=== PATIENT | male | born 1945 | race Caucasian/White ===

== ENCOUNTER 2025-01-24 14:26 | Outpatient (CLI) | payer MEDICARE, SELFPAY ==
--- NOTE | ~2025-01-24 | CT_ITS ---
CLINICAL INDICATION: Gross hematuria COMPARISON: None. TECHNIQUE: Multiple contiguous axial images of the abdomen and pelvis were performed without the admi nistration of intravenous contrast The dose-length product (DLP) was 1300.92 mGy-cm. Automated exposure control and iterative reconstruction technique were employed. FINDINGS/OBSERVATIONS: Visualized lower thorax: The bilateral lung bases are clear. The heart is enlarged, without pericardial effusion. Small hiatal hernia is present. Liver: Punctate calcifications identified within the hepatic parenchyma, suggesting prior granulomato us disease. Well-circumscribed focus of fluid attenuation within segment 2 and 5 of the liver, statistically repr esenting cysts. The remainder of the liver demonstrates otherwise homogeneous attenuation and is not enlarged. Gallbladder and biliary system: The gallbladder is surgically absent. Pancreas: Limited evaluation of the pancreas secondary to the lack of intravenous contrast. Spleen: Punctate calcifications identified within the splenic parenchyma, suggesting prior granulomat ous disease. The remainder of the spleen demonstrates otherwise no homogeneous attenuation and is not enlarged. Kidneys: 2 mm nonobstructing calculus is identified within the lower pole of the left kidney. The remainder of the bilateral kidneys are unremarkable, without hydronephrosis or obstructing renal calculi. Adrenal glands: Unremarkable. Gastrointestinal tract: Colonic diverticulosis without surrounding inflammatory change. Appendix: The air-filled appendix is of normal caliber (axial series, images 59 through 98) Vasculature: Densely calcified atherosclerotic disease without aneurysmal dilatation. Lymph nodes: Limited evaluation without intravenous contrast Pelvic structures: The bladder is only minimally distended, and otherwise unremarkable. Limited evaluation of the attenuation of the base of the bladder secondary to streak metallic artifac t from the patient's left hip prosthetic. The prostate gland is not enlarged, and contains bulky calcifications. Body wall and musculoskeletal: Small fat-containing right inguinal hernia. Age-appropriate degenerative disease within the lower thoracic and lumbosacral spine. IMPRESSION: Findings suggesting prior granulomatous disease. 2 mm calculus within the lower pole of the left kidney. No hydronephrosis or additional renal calculi. Reviewed, dictated and finalized at location A.
--- OUTSIDE RECORDS SUMMARY | 2025-01-24 14:49 | XMS_ITS | Clinical Summary ---
Author Organization [facility] Address [address] [place] [address] Care Team Providers Care Leather Goods Maker Name Role Phone Rick Bowman MD Primary Care Provider Source Comments [facility],non-owned Affiliates and Associated Physician Practices is amultiple site organization consisting of ambulatory clinics and hospital sitesin [place], [place], [place] and [place]. This disclosure is being madepursuant to the Care Everywhere program and may not contain all information available regarding this patient. 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 Family History Medical History Relation Name Comments Glaucoma Neg Hx Macular Degeneration Neg Hx Social History Tobacco Use Types Packs/Day Years Used Date Smoking Tobacco: Never Alcohol Use Standard Drinks/Week Comments Yes 0.8 (1 standard drink = 0.6 oz p ure alcohol) Sex and Gender Information Value Date Recorded Sex Assigned at Not on file Legal Sex 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 Gender Identity Not on file Sexual Orientation Not on file Last Filed Vital Signs Vital Sign Reading Time Taken Comments Blood Pressure 129/72 08/12/2013 2:08 PM [employer] ASSOCI[employer] PROFESSOR Pulse 61 08/12/2013 2:08 PM [employer] PROFESSOR Temperature 36.4 C (97.6 F) 08/12/2013 2:08 PM [employer] ASS[employer] PROFESSOR Respiratory Rate 16 08/12/2013 2:08 PM [employer] ASSOCIATE PROFESSOR Oxygen Saturation 100% 08/12/2013 2:08 PM [employer] ASS[employer] PROFESSOR Inhaled Oxygen Concentration - - Weight 95.3 kg (210 lb) 08/12/2013 10:55 AM [employer] ASSOCI[employer] PROFESSOR Height 172.7 cm (5' 8) 08/12/2013 10:55 AM [employer] ASSOCIATE PROFESSOR Body Mass Index 31.93 08/12/2013 10:55 AM [employer] PATH[employer] ASSOCIATE PROFESSOR Plan of Treatment Health Maintenance Due Date Last Done Comments DTAP/TDAP/TD VACCINES (1 - Tdap) 1964 PNEUMOCOCCAL VACCINE 50+ (1 of 1 - PCV) 1995 ZOSTER VACCINE (1 of 2) 1995 Respiratory Syncytial Virus (RSV) Vaccine Pt: or over 60 yrs (1 - 1-dose 75+ series) 2020 COVID-19 VACCINE ( - 2023-2 5 season) 2024 DEPRESSION SCREENING 06/16/2024 INFLUENZA VACCINE (#1) 2025 HEPATITIS B VACCINE Aged Out No longe r eligible based on patient's age to complete this topic HIB VACCINE Aged Out No longer eligi ble based on patient's age to complete this topic HPV VACCINE Aged Out No longer eligi ble based on patient's age to complete this topic MENINGOCOCCAL (Group B) VACC INE SHARED DECISION-MAKING Aged Out No longer eligibl e based on patient's age to complete this topic MENINGOCOCCAL GROUPS A/C/Y/W VACCINE Aged Out No longer eligible b ased on patient's age to complete this topic Care Teams Leather Goods Maker Relationship Specialty Start Date End Date Rick Bowman MD [id number] [id number] PCP - General 06/28/13
--- OUTSIDE RECORDS SUMMARY | 2025-01-24 14:49 | XMS_ITS | Clinical Summary ---
Author Organization [facility] Address [address] [place] [address] Care Team Providers Care Multimedia Services Manager Name Role Phone Sloan Montano MD Unavailable [phone] Noah Li MD, Clarence Xie Primary Care Provide r Vidal Pike DO Unavailable [phone] Allergies Active Allergy Reactions Criticality Noted Date Comments Iodinated Contrast Media Hives Medium Penicillins Rash Medium As a child Medications finasteride (PROSCAR) 5 mg tabletIndications: Benign prostatic hyperplasia without lower urinary tract symptoms Take 1 tablet (5 mg total) by mouth daily 90 tablet 3 01/18/20 22 Active Additional Information Patient taking differently:5 mg oralNightly, Indications: benign prostatic hyperplasia with lower urinary tract sx, Informant: Self, Reported on 01/10/2025 multivit-min/folic /vit K/lycop (MEN'S MULTIVITAMIN ORAL)Indications:s upplement Take 1 tablet by mouth nightly Active meloxicam (MOBIC) 15 mg tablet Take 1 tablet (15 mg total) by mouth daily 90 tablet 3 05/21/20 24 025 Active Additional Information Patient taking differently:15 mg oralEvery morning, Indications: Osteoarthritis, Informant: Self, Reported on 01/10/2025 atorvastatin (LIPITOR) 80 mg tabletIndications: Hypercholesterolem ia TAKE 1 TABLET(80 MG) BY MOUTH DAILY 90 tablet 3 06/21/19 25 Active Additional Information Patient taking differently:80 mg oralNightly, Indications: hyperlipidemia, Informant: Self, Reported on 01/10/2025 gabapentin (NEURONTIN) 100 mg capsuleIndications :Spinal stenosis of lumbar region without neurogenic claudication,Myelo beba,Bulging of lumbar intervertebral disc Take 1 capsule (100 mg total) by mouth 3 (three) times a day 270 capsule 11/16/19 25 Active Additional Information Patient taking differently:100 mg oral 3 times daily,Indications: Neuropathic Pain, Informant: Self, Reported on 01/10/2025 naloxone (NARCAN) 4 mg/actuation spray,non-aerosolI ndications:Bulging of lumbar intervertebral disc,Myelopathy Administer 1 spray into affected nostril(s) as needed for opioid reversal Call 911. Administer a single spray in one nostril. Repeat every 3 minutes as needed if no or minimal response. 1 each 12/10/19 25 Active LORazepam (ATIVAN) 1 mg tabletIndications: Essential tremor Take 1 tablet (1 mg total) by mouth 2 (two) times a day 60 tablet 4 12/10/19 25 Active Additional Information Patient taking differently:1 mg oral 2 times daily,Indications: anxiety, Informant: Self, Reported on 01/10/2025 mupirocin (BACTROBAN) 2 % ointment Apply to nares BID starting 5 days prior to surgery ending the day prior 22 g 12/14/19 25 Active acetaminophen (TYLENOL) 500 mg tabletIndications: Pain Take 1 tablet (500 mg total) by mouth every 6 (six) hours as needed for pain Active polyethylene glycol (MIRALAX) 17 gram/dose bulk powderIndications: constipation Take 17 g by mouth daily as needed Active oxyCODONE-acetamin ophen (PERCOCET) 5-325 mg per tabletIndications: Pain Take 1 tablet by mouth every 4 (four) hours as needed for pain 20 tablet 01/11/20 25 Active cyclobenzaprine (FLEXERIL) 10 mg tablet Take 1 tablet (10 mg total) by mouth 3 (three) times a day as needed for muscle spasms 15 tablet 01/11/20 25 Active senna (SENOKOT) 8.6 mg tablet Take 1 tablet by mouth daily 30 tablet 11 01/11/20 25 026 Active ondansetron ODT (ZOFRAN-ODT) 4 mg disintegrating tablet Take 1 tablet (4 mg total) by mouth every 8 (eight) hours as needed for nausea or vomiting 20 tablet 01/11/20 25 Active HYDROcodone-acetam inophen (NORCO) 5-325 mg per tabletIndications: Pain Take 1-2 tablets by mouth every 8 (eight) hours as needed for pain 28 tablet 01/13/20 25 Active ezetimibe (ZETIA) 10 mg tablet Take 1 tablet (10 mg total) by mouth daily 90 tablet 3 01/19/20 25 Active ezetimibe (ZETIA) 10 mg tablet TAKE 1 TABLET(10 MG) BY MOUTH DAILY 90 tablet 3 01/12/20 24 025 Discontin ued(Reord er) HYDROcodone-acetam inophen (NORCO) 5-325 mg per tabletIndications: Pain Take 1-2 tablets by mouth every 8 (eight) hours as needed for pain 60 tablet 12/17/19 25 025 Discontin ued(Reord er) Active Problems Problem Noted Date Diagnosed Date Thoracic myelopathy 12/13/2024 Spinal stenosis of lumbar re gion without neurogenic claudication 05/21/2024 Assessment & Plan (05/21/2024 11:03 AM ASSISTANT HVAC MECHANIC): Ongoing. Continue Meloxicam 15 mg daily. MRI reviewed with Vidal and Tx options discussed. He is encouraged to stay active to prevent pain. He will notify our office of any significant changes, but I have advised that pain will naturally increase and decrease without warning. Preventative health care 02/03/2024 Assessment & Plan (02/03/2024 11:06 AM CDT): Reviewed previous labs and diagnostic test results. Chronic medical problems evaluated and management plans discussed with the patient. Prescription medications, supplements, vitamins and immunizations reviewed. Wear seatbelts. Use sunscreen. Discussed healthy diet and disease prevention and controlling portions including alcohol Discussed importance of scheduling recommended screening tests. Discussed importance of regular physical examinations for health maintenance. Discussed importance of a living will, advanced directives and establishing or updating healthcare power of attorney law clerk document and providing our office with a copy. Memory loss 02/03/2024 Assessment & Plan (10/12/2024 10:31 AM CDT): Believes this has improved recently since going back on ativan twice a day Assessment & Plan (02/03/2024 11:58 AM CDT): Mild at worst, will recheck slums next year Wanted to hold memory clinic, explained that is over in [facility] now moving forward Essential tremor 04/26/2022 Assessment & Plan (02/03/2024 10:35 AM CDT): Attempted to try multiple other medications Patient reports only lorazepam controlling his symptoms Have explained controlled substances nature of this medication, increase fall risk, dementia etc Still wants to take ativan twice a day Assessment & Plan (01/28/2023 11:33 AM CDT): Chronic stable Well controlled Continue current prescribed medications at current dose Assessment & Plan (11/14/2022 2:18 PM CDT): Has tried all the other medications for this but nothing else has helped and if anything has made his movement disorder worse This has become troublesome for him and we have discussed at length We will restart ativan and continue that moving forward Understands Assessment & Plan (08/12/2022 4:40 PM ASSISTANT HVAC MECHANIC): We are stopping propanolol because of lack of results and low HR He is asymptomatic from a low heart rate stand point We will try gabapentin, he can uptritate as needed to 300 mg twice a dosing He will contact us about his progression Assessment & Plan (04/26/2022 4:23 PM ASSISTANT HVAC MECHANIC): Has taken lorazepam for years for this We discussed at length new plan moving forward, we will attempt to get off the lorazepam and change to propanolol We will slowly wean off lorazepam CSA signed He will try 1 ativan a day, then 1 propanolol in the afternoon. We will try this for several months if not the year consider his duration of being on ativan Left ureteral stone 12/09/2019 Assessment & Plan (08/12/2022 4:26 PM ASSISTANT HVAC MECHANIC): Will follow with urology about this Assessment & Plan (01/17/2022 10:02 AM CDT): Treated with lithotripsy Bilateral impacted cerumen 04/06/2019 Assessment & Plan (04/06/2019 10:27 AM CDT): The cerumen was removed form both ear by lavaging with water Light headedness 02/23/2019 Assessment & Plan (02/23/2019 11:53 AM CDT): Told to get up slowly History of left hip replacement 12/04/2017 Class 1 obesity due to exces s calories with serious comorbidity and body mass index (BMI) of 34.0 to 34.9 in adult 12/04/2017 Assessment & Plan (02/03/2024 11:06 AM CDT): Monitor, stable over the years Assessment & Plan (01/28/2023 1:13 PM CDT): Monitor weight Assessment & Plan (08/12/2022 4:27 PM ASSISTANT HVAC MECHANIC): With HLD Monitor weight Assessment & Plan (01/17/2022 10:00 AM CDT): BMI Follow-up includes: education provided. Assessment & Plan (01/08/2021 11:01 AM CDT): BMI Follow-up includes: education provided. Assessment & Plan (01/05/2020 2:32 PM CDT): BMI Follow-up includes: education provided. Assessment & Plan (04/06/2019 10:28 AM CDT): BMI Follow-up includes: education provided. Assessment & Plan (02/23/2019 11:52 AM CDT): BMI Follow-up includes: education provided. Assessment & Plan (12/30/2018 11:10 AM CDT): BMI Follow-up includes: education provided. Vitamin B12 deficiency 12/04/2017 Assessment & Plan (01/31/2022 9:16 AM CDT): Continue the vitamin B12 Medicare annual wellness visit, subsequent 12/16 Assessment & Plan (01/28/2023 1:13 PM CDT): Reviewed previous labs and diagnostic test results. Chronic medical problems evaluated and management plans discussed with the patient. Prescription medications, supplements, vitamins and immunizations reviewed. Wear seatbelts. Use sunscreen. Discussed healthy diet and disease prevention and controlling portions including alcohol Discussed importance of scheduling recommended screening tests. Discussed importance of regular physical examinations for health maintenance. Discussed importance of a living will, advanced directives and establishing or updating healthcare power of attorney law clerk document and providing our office with a copy. Assessment & Plan (01/05/2020 2:31 PM CDT): Examination is normal Assessment & Plan (12/04/2017 10:21 AM CDT): Examination is good Assessment & Plan (12/16/2016 10:11 AM CDT): Told to lose weight Corneal ulcer 03/30/2015 Hypercholesterolemia 10/30/2013 Overview (09/19/2016): Hypercholesterolemia Assessment & Plan (02/03/2024 11:01 AM CDT): Chronic stable Well controlled Continue current prescribed medications ezetimibe and lipitor at current dose Assessment & Plan (01/28/2023 11:33 AM CDT): Chronic stable Well controlled Continue current prescribed medications at current dose Assessment & Plan (04/26/2022 4:04 PM ASSISTANT HVAC MECHANIC): Chronic stable Well controlled Continue current medications at current dose Assessment & Plan (01/08/2021 11:02 AM CDT): Continue present medication Assessment & Plan (12/30/2018 11:08 AM CDT): Continue the atorvastatin 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 Assessment & Plan (10/12/2024 10:30 AM CDT): History of this S/p orchiectomy Now in remission No need for active follow-up Put here for chart purpose only-was not discussed Assessment & Plan (02/03/2024 10:40 AM CDT): History of this S/p orchiectomy Now in remission No need for active follow-up Benign prostatic hyperplasia 10/30/2013 Overview (09/20/2016): BPH (benign prostatic hyperplasia) Assessment & Plan (02/03/2024 11:01 AM CDT): Chronic stable Well controlled Continue current prescribed medications flomax and finasteride at current dose Assessment & Plan (01/17/2022 10:02 AM CDT): He is on proscar Assessment & Plan (01/08/2021 10:58 AM CDT): He is followed byr urology for the bph. He had the left testicle removed and was treated with chemotherapy for the testicular carcinoma 40 years ago. 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 If no better will get xrays of ribs Acute left-sided low back pain 11/17/2017 08/12/2022 Assessment & Plan (11/17/2017 2:44 PM CDT): The pain is probably due to muscle strain. No treatment is needed BMI 35.0-35.9,adult 11/17/2017 04/26/20 Assessment & Plan (08/18/2018 3:44 PM ASSISTANT HVAC MECHANIC): BMI Follow-up includes: education provided. Assessment & Plan (12/04/2017 10:23 AM CDT): BMI Follow-up includes: education provided. Assessment & Plan (11/17/2017 2:45 PM CDT): .BMI Follow-up includes: education provided. Encounters Date Type Department Care Team Description 01/11/2025 Telephone [facility] Neurosurgery [facility] 6th [place] [address] [place] [address] Vidal Pike DO 01/11/2025 Telephone [facility] Neurosurgery [facility] 6th [place] [address] [place] [address] Vidal Pike DO 01/10/2025 10:57 AM CDT Anesthesia Event [facility] Operating Room [address] [place] [address] Jose Martin Collier MD Thomas, Karen D., STEEL TURNER 01/10/2025 10:35 AM CDT - 01/10/2025 3:00 PM CDT Surgery [facility] Operating Room [address] [place] [address] Vidal Pike DO THORACIC ENDOSCOPIC DISCECTOMY Right T12-L1 transforaminal discectomy 01/10/2025 6:42 AM CDT - 01/10/2025 6:18 PM CDT Hospital Encounter [facility] Operating Room [address] [place] [address] Vidal Pike DO Thoracic myelopathy (Primary Dx) Discharge Disposition: Discharge to home or self care 12/31/2024 4:16 PM CDT - 12/31/2024 11:59 PM CDT Hospital Encounter [facility] [address] [place] [address] Spinal stenosis of lumbar region without neurogenic claudication; Myelopathy (HCC); Bulging of lumbar intervertebral disc Discharge Disposition: Discharge to home or self care 12/31/2024 2:30 PM CDT Pre-Admission Testing [facility] for Preoperative Assessment and Planning [facility] ([facility]) [address] [place] [id number] Preoperative testing (Primary Dx); Thoracic myelopathy 12/16/2024 Telephone [facility] [address] [place] [address] [address] [place] [address] Clarence Zamora Jr., MD 12/15/2024 Telephone [facility] [address] [place] [address] [address] [place] [address] Clarence Zamora Jr., MD Forms Request 12/13/2024 Orders Only [facility] Neurosurgery [address] [place] [address] 6th [place] [address] [place] [address] Vidal Pike DO 12/13/2024 Nurse Triage [facility] [address] [place] [address] [address] [place] [address] Clarence Zamora Jr., MD 12/10/2024 Orders Only [facility] Neurosurgery [address] [facility] Office Building [address] [place] [address] Vidal Pike DO Myelopathy (HCC) (Primary Dx); Spinal stenosis of lumbar region without neurogenic claudication 12/10/2024 Telephone [facility] Neurosurgery [address] [facility] Office Building [address] [place] [address] Vidal Pike DO 12/10/2024 Nurse Triage [facility] Patient Access [address] [facility] [address] [place] [address] Sangeetha Quevedo RN 12/10/2024 Nurse Triage [facility] Patient Access [address] [facility] [address] [place] [address] Sangeetha Quevedo RN 12/09/2024 10:00 AM CDT Office Visit [facility] [address] [place] [phone] Clarence Zamora Jr., MD Bulging of lumbar intervertebral disc (Primary Dx); Myelopathy (HCC); Essential tremor 12/08/2024 Orders Only [facility] Neurosurgery [address] [place] [address] Office [facility] [address] [place] [address] Vidal Pike DO Bulging of lumbar intervertebral disc (Primary Dx); Spinal stenosis of lumbar region without neurogenic claudication; Myelopathy (HCC) 12/07/2024 10:00 AM CDT Office Visit [facility] Neurosurgery [address] [place] [address] Office [facility] [address] [place] [address] Vidal Pike DO Spinal stenosis of lumbar region without neurogenic claudication; Myelopathy (HCC); Bulging of lumbar intervertebral disc 12/07/2024 Telephone [facility] Care [address] [place] [phone] Clarence Zamora Jr., MD upcoming back surgery 12/01/2024 Orders Only [facility] Neurosurgery Clinic [address] [place] [address], [address] [place] [address] Hugo Harris MD Spinal stenosis of lumbar region without neurogenic claudication (Primary Dx); Myelopathy (HCC); Bulging of lumbar intervertebral disc 11/29/2024 Telephone [facility] [address] [place] [phone] Clarence Zamora Jr., MD X-ray 11/25/2024 12:51 PM CDT - 11/25/2024 11:59 PM CDT Hospital Encounter [facility] [address] [place] [address] Fall, initial encounter Discharge Disposition: Discharge to home or self care 11/25/2024 12:35 PM CDT - 11/25/2024 11:59 PM CDT Hospital Encounter [facility] [address] [place] [address] Spinal stenosis of lumbar region without neurogenic claudication; Myelopathy (HCC); Bulging of lumbar intervertebral disc Discharge Disposition: Discharge to home or self care 11/25/2024 12:34 PM CDT - 11/25/2024 11:59 PM CDT Hospital Encounter [facility] [address] [place] [address] Spinal stenosis of lumbar region without neurogenic claudication; Myelopathy (HCC); Bulging of lumbar intervertebral disc Discharge Disposition: Discharge to home or self care 11/24/2024 Telephone [facility] [address] [place] [address] [address] [place] [address] Clarence Zamora Jr., MD Request for Xray 11/22/2024 Telephone [facility] Scheduling [address] [place], [place] [phone] Racquel Timmons 11/17/2024 11:00 AM CDT Office Visit [facility] [address] [place] [address] 3, [address] [place] [address] Hugo Harris MD Spinal stenosis of lumbar region without neurogenic claudication (Primary Dx); Myelopathy (HCC); Bulging of lumbar intervertebral disc 11/15/2024 Orders Only [facility] Neurosurgery Clinic [address] [place] [address] 3, [address] [place] [phone] Hugo Harris MD Spinal stenosis of lumbar region without neurogenic claudication (Primary Dx); Myelopathy (HCC); Bulging of lumbar intervertebral disc 11/05/2024 - 11/05/2024 11:59 PM CDT Hospital Encounter [facility] [employer] [address] [place] [address] Discharge Disposition: Discharge to home or self care 11/01/2024 2:24 PM CDT - 11/01/2024 11:59 PM CDT Hospital Encounter [facility] [address] [place] [address] Bulging of lumbar intervertebral disc; Myelopathy (HCC) Discharge Disposition: Discharge to home or self care 11/01/2024 2:00 PM CDT Office Visit [facility] [place] [address], [address] [place] [address] Anastacio Gifford PA Spinal stenosis of lumbar region with neurogenic claudication (Primary Dx); Bulging of lumbar intervertebral disc; Myelopathy (HCC) from Last 3 Months Immunizations Immunization Administration Dates Next Due Influenza, Quad, Adjuvantate d, Intramuscular 03/03/2020 Influenza, Quadrivalent, Hig h Dose, Preservative Free, Intrr 03/23/2023,02/24/2022,03/21/2021 Influenza, Trivalent, Adjuva nted, Intramuscular 02/15/2024 Influenza, Trivalent, High D ose, Split, Preservative Free, Intramuscular 04/06/2019,03/09/2018,03/26/2017,03/28,03/13/2015 Influenza, Trivalent, IM (MDV) 4,02/12/2013,05/15/2012,03/16 Influenza, Trivalent, Preser vative Free, Intramuscular 03/03/2020,02/12/2013,05/15/2012 Influenza, Unspecified 03/03/2020,03/16/2016 Pfizer SARS-CoV-2 Monovalent Vaccination (12+ Yrs) PURPLE 08/27/2020,08/06/2020 Pneumococcal Conjugate PCV 13 12/23/2014 Pneumococcal Polysaccharide PPV23 04/12/2019,06/2001 Tdap 09/09/2021,12/23/2014,05/07/2014 ZOSTER Recombinant 11/10/2020,05/10/2020 Surgical History Surgery Date Site/Laterality Comments CHOLECYSTECTOMY Cholecystectomy CATARACT EXTRACTION Right TOTAL HIP ARTHROPLASTY Left ORCHIECTOMY Medical History Medical History Date Comments Osteoarthritis Osteoarthritis Hyperlipidemia Cataract Chronic lumbar pain Lumbar facet arthropathy Dextroscoliosis of lumbar spine DDD (degenerative disc disease), lumbar Difficult intravenous access Testicular cancer (HCC) Kidney stones Family History Medical History Relation Name Comments Coronary artery disease Father Lencho Sainz Cor onary artery disease, premature; Heart attack Father Lencho Sainz Alzheimer's disease Mother Ralfanna Ghislaine Relation Name Status Comments Father Lencho Sainz Alive Mother Evan Ghislaine Alive Social History Tobacco Use Types Packs/Day Years Used Date Smoking Tobacco: Never Passive Smoke Exposure: Never Smokeless Tobacco: Never Tobacco Cessation:Counseling Given: Not Answered Alcohol Use Standard Drinks/Week Comments Yes 0 (1 standard drink = 0.6 oz pur e alcohol) AUDIT-C Answer Date Recorded Q1: How often do you have a drink containing alc ohol? Monthly or less 12/31/2024 Q2: How many drinks containi ng alcohol do you have on a typical day when you are drinking? 1 or 2 12/31/2024 Q3: How often do you have si x or more drinks on one occasion? Never 12/31/2024 PHQ-2 Answer Date Recorded PHQ-2 Total Score (If total score is 3 or more points, staff should administer the PHQ-9) 0 12/09/2024 Personal Safety Answer Date Recorded Have you ever been in or are you currently in a harmful physical or emotional relationship or is someone making you feel afraid or unsafe? Denies 01/10/2025 Sex and Gender Information Value Date Recorded Sex Assigned at Not on file Legal Sex Male 11:42 PM ASSISTANT HVAC MECHANIC Gender Identity Not on file Sexual Orientation Not on file Obstetrics History Last Filed Vital Signs Vital Sign Reading Time Taken Comments Blood Pressure 155/90 01/10/2025 5:40 PM CDT Pulse 74 01/10/2025 5:40 PM CDT Temperature 37 C (98.6 F) 01/10/2025 5:00 PM CDT Respiratory Rate 18 01/10/2025 5:40 PM CDT Oxygen Saturation 93% 01/10/2025 5:40 PM CDT Inhaled Oxygen Concentration - - Weight 101.2 kg (223 lb) 01/10/2025 9:13 AM CDT Height 172.7 cm (5' 8) 12/31/2024 2:35 PM CDT Body Mass Index 33.91 12/31/2024 2:35 PM CDT Plan of Treatment Health Maintenance Due Date Last Done Comments Hepatitis C Screening 1945 Hepatitis B Screening 1963 Covid-19 Vaccine (2023-07 5 season) 2024 02/15/2024, 03/23/2023, 02/24/2022, Additional history exists Well Visit 65+ 02/02/2025 02/03/2024, 01/14, 01/17/2022, Additional history exists Influenza Vaccine (#1) 2025 , 03/23/2023, 02/24/2022, Additional history exists Depression Screening 12/09/2025 12/09/2024, 10/12/2024, 05/21/2024, Additional history exists Fall Risk Assessment 01/10/2026 01/10/2025, 02/03/2024, 01/28/2023, Additional history exists DTaP/Tdap/Td Vaccine (4 - Td or Tdap) 09/10/2031 09/09/2021, 12/23/2014, 05/07/2014 Colon Cancer Screening-CT Colonography Discontinued 04/19/2016, 04/18/2016 Colon Cancer Screening-Colonoscopy Discontinued 04/19/2016, 04/18/2016 Colon Cancer Screening-DNA Stool Discontinued 04/19/20 16, 04/18/2016 Colon Cancer Screening-FIT Discontinued 04/19/2016, Colon Cancer Screening-FOBT Discontinued 04/19/2016, 1 06/18/2015 Colon Cancer Screening-Sigmoidoscopy Discontinued 04/19/2016, 04/18/2016 Colorectal Cancer Screening Discontinued Pneumococcal vaccine 65+ Completed 019, 12/23/2014, 06/16/2001 Zoster Vaccine Completed 11/10/2020, 05/10/2020 Medical Devices Implanted Type Area Professional Nurse Device Identifier Shelf Expiration Date Model / Serial / Lot [employer] Graft Biological Cranial Dural Rectangle Duragen Plus 1x3in Bovine Collagen Matrix [id number] - [id number] Implanted:Qty: 1 on 01/10/2025 by Vidal Pike DO at [facility] Right: Epidural Space [employer] [id number] 05/15/2027 [id number] / / [id number] Procedures Procedure Name Priority Date/Time Associated Diagnosis Comments FL FLUOROSCOPY < 1 HOUR IP Routine 01/10/2025 5:02 PM CDT POC BLOOD GAS AND CHEMISTRIES, ARTERIAL Routine 01/10/2025 2:20 PM CDT PERIPHERAL LINE Routine 01/10/2025 12:46 PM CDT ANESTHESIA ARTERIAL LINE PLACEMENT Routine 01/10/2025 12:46 PM CDT ANESTHESIA INTUBATION Routine 01/10/2025 12:45 PM CDT SPINAL CORD MONITORING 01/10/2025 11:00 AM CDT Thoracic myelopathy THORACIC ENDOSCOPIC DISCECTOMY 01/10/2025 11:00 AM CDT Thoracic myelopathy B CHECK SAMPLE STAT 01/10/2025 9:25 AM CDT MRI SPINE CERVICAL THORACIC WO CONTRAST Schedule Routine, Read Routine (OP Routine) 12/31/2024 6:08 PM CDT Spinal stenosis of lumbar region without neurogenic claudication Myelopathy (HCC) Bulging of lumbar intervertebral disc EGFR Routine 12/31/2024 3:54 PM CDT Thoracic myelopathy DIFFERENTIAL AUTO Routine 12/31/2024 3:5 4 PM CDT Thoracic myelopathy CPAP APTT ALGORITHM Routine 12/31/2024 3 :54 PM CDT Preoperative testing TYPE AND SCREEN 14 DAY Routine 12/31/2024 3:54 PM CDT Preoperative testing PROTIME-INR Routine 12/31/2024 3:54 PM CDT Thoracic myelopathy CBC WITH AUTO DIFFERENTIAL Routine 12/31/2024 3:54 PM CDT Thoracic myelopathy BASIC METABOLIC PANEL Routine 12/31/2024 3:54 PM CDT Thoracic myelopathy URINALYSIS AND REFLEX TO MICROSCOPIC AND CULTURE Routine 12/31/2024 3:54 PM CDT Thoracic myelopathy XR HIP LEFT 2 OR 3 VIEWS Schedule Routine, Read Routine (OP Routine) 11/25/2024 1:05 PM CDT Fall, initial encounter CT THORACIC SPINE WO CONTRAST Schedule Routine, Read Routine (OP Routine) 11/25/2024 12:47 PM CDT Spinal stenosis of lumbar region without neurogenic claudication Myelopathy (HCC) Bulging of lumbar intervertebral disc CT LUMBAR SPINE WO CONTRAST Schedule Routine, Read Routine (OP Routine) 11/25/2024 12:46 PM CDT Spinal stenosis of lumbar region without neurogenic claudication Myelopathy (HCC) Bulging of lumbar intervertebral disc MSK MR OUTSIDE REFERENCE Routine 11/05/2024 12:00 AM CDT XR LUMBAR SPINE AP LAT FLEX EX Schedule Routine, Read Routine (OP Routine) 11/01/2024 2:38 PM CDT Bulging of lumbar intervertebral disc Myelopathy (HCC) XR SCOLIOSIS AP LAT Schedule Routine, Read Routine (OP Routine) 11/01/2024 2:38 PM CDT Bulging of lumbar intervertebral disc Myelopathy (HCC) COLONOSCOPY REPORT 04/19/2016 from Last 3 Months or Most Recently Relevant to Health Maintenance Results * FL Fluoroscopy < 1 Hour (01/10/2025 5:02 PM CDT) Narrative [facility] - 01/10/2025 5:02 PM CDT The images from this study are not interpreted by Radiology. Please refer to the physician's procedure / OR operative note. Vidal Pike DO IMG FLUOROSCOPY PROCEDURES Rachel l Result [facility] * (ABNORMAL) POC Blood Gas and Chemistries, Arterial - (01/10/2025 2:20 PM CDT) pH, Art POC 7.36 7.35 - 7.45 pCO2, Art POC 44 35 - 45 mmHg [facility] pO2, Art POC 104 83 - 108 mmHg [facility] Na, POC 138 135 - 145 mmol/L [facility] K POC 4.0 3.3 - 4.9 mmol/L [facility] Comment: Interpretive Data Not all point of care methods assess for hemolysis. Confirm with instrument and retest K+ if not consistent with clinical signs and symptoms. Current Interpretive Data was last revised on 2023. Cl, POC 107 97 - 110 mmol/L [facility] Ionized Ca, POC 4.76 4.50 - 5.10 mg/dL [facility] Glucose, POC 127 70 - 199 mg/dL [facility] Lactate POC 1.9 0.7 - 2.0 mmol/L [facility] SO2 (bennie) arterial 100(H) 90 - 95 % [facility] Base excess, POC -0.8 mmol/L [facility] Hct, POC 40.0(L) 41.4 - 51.6 % [facility] Total Hb, POC 13.2(L) 13.8 - 17.2 g/dL [facility] Blood 01/10/2025 2:20 PM CDT 01/10/2025 2:20 PM CDT Vidal Pike DO LAB POCT ORDERABLES - DEVICE Fi nal Result [facility] [place] [address] * Peripheral IV Catheter (01/10/2025 12:46 PM CDT) Narrative Itz Hubbard MD - 01/10/2025 12:46 PM CDT Itz Hubbard MD 01/10/2025 12:47 PM Peripheral IV Catheter Patient location: OR Staff: Supervising provider: Jose Martin Collier MD Placed by: Resident: Itz Hubbard MD Preprocedure prep: Prep solution: alcohol PPE: gloves and provider hat/mask PIV line: Laterality: left Site: antecubital Catheter size: 18 g Technique: direct visualization Procedure details: good blood return and occlusive dressing applied Number of attempts: 1 Assessment: Events: patient tolerated procedure well with no complications Jose Martin Collier MD ANESTHESIA ORDERABLES Fi nal Result * Arterial Line (01/10/2025 12:46 PM CDT) Itz Ewing MD - 01/10/2025 12:46 PM CDT Itz Hubbard MD 01/10/2025 12:46 PM Arterial Line Patient location: OR Indication: continuous blood pressure monitoring Ultrasound assisted: yes Staff: Placed by: Resident: Itz Hubbard MD Procedure prep: Prep solution: chlorhexadine/alcohol Prep: provider hat/mask and sterile gloves Arterial line: Catheter size: 20 gauge Catheter length: 1 and 3/4 inch Catheter type: wire-guided catheter Seldinger technique: yes Laterality: right Site: radial artery Line secured: Tegaderm Results: good waveform and good blood return Number of attempts: 1 Assessment: Events: patient tolerated procedure well with no complications Jose Martin Collier MD ANESTHESIA ORDERABLES Fi nal Result * Airway (01/10/2025 12:45 PM CDT) Itz Ewing MD - 01/10/2025 12:45 PM CDT Itz Hubbard MD 01/10/2025 12:46 PM Airway Patient location: OR Urgency: elective Indications for airway management: anesthesia Difficult airway: no Staff: Supervising provider: Jose Martin Collier MD Placed by: Resident: Itz Hubbard MD Emergent airway documentation: Risks and benefits discussed: yes Consent obtained: yes Consent given by: patient Airway prep: Preoxygenated: yes Patient position: sniffing Spontaneous ventilation during airway: absent Sedation level during airway: GA Final airway details: Final airway type: endotracheal airway Tube type: ETT ETT size: 8.0 mm Cuffed: yes Technique used for successful ETT placement: video laryngoscopy Devices/Methods used in placement: intubating stylet Insertion site: oral Blade type: Prashant Video blade type: Germain Blade size: 4D Cormack-Lehane (video): grade I - full view of glottis Cuff volume: 9 mL Cuff inflated with: air ETT to lips: 25 cm Placement verified by: auscultation and CO2 detection Airway secured with: prone view tape and tegaderm Number of attempts: 1 Jose Martin Collier MD ANESTHESIA ORDERABLES Fi nal Result * Check Sample (01/10/2025 9:25 AM CDT) ABO Rh B Positive [facility] OTHER 01/10/2025 9:25 AM CDT 01/10/2025 10:02 AM CDT Vidal Pike DO LAB BLOOD ORDERABLES Final Resu lt [facility] [place] [address] [facility] * MRI Spine Cervical and Thoracic WO Contrast (12/31/2024 6:08 PM CDT) Anatomical Region Laterality Modality Spine N/A Magnetic Resonan ce 01/01/2025 12:5 4 PM CDT Impressions 01/01/2025 12:54 PM CDT 1. Moderate degenerative changes of the cervical spine. 2. Mild degenerative changes of the thoracic spine. Electronically signed by: David Perez M.D. Narrative 01/01/2025 12:54 PM CDT EXAMINATION: 1. Magnetic resonance imaging (MRI) of the cervical spine without contrast 2. Magnetic resonance imaging (MRI) of the thoracic spine without contrast HISTORY: Spinal stenosis presurgical planning TECHNIQUE: Multiplanar multi-weighted MRI of the cervical spine was performed without intravenous contrast using the standard protocol. Multiplanar multi-weighted MRI of the thoracic spine was performed without intravenous contrast using the standard protocol. COMPARISON: Comparisons are available at the lumbar spine only. FINDINGS: CERVICAL SPINE: The alignment of the cervical spine is normal. Vertebral bodies demonstrate Modic changes at multiple levels. No acute fracture is identified. The craniocervical junction is normal. The visualized portions of the skull base and the posterior fossa are normal. The spinal cord demonstrates normal signal intensity on all sequences. Severe degenerative disc disease is seen throughout the cervical spine with partial fusion at C6-C7. There are no annular fissures identified. No soft tissue abnormality is identified. C2-C3: The disk is normal in configuration. There is mild facet arthropathy. There is no uncovertebral joint disease. There is no neuroforaminal stenosis. There is no spinal canal stenosis. C3-C4: Mild disc osteophyte complex. There is mild facet arthropathy. There is mild uncovertebral joint disease. There is moderate to severe neuroforaminal stenosis. There is mild spinal canal stenosis. C4-C5: Mild disc osteophyte complex. There is mild facet arthropathy. There is mild uncovertebral joint disease. There is moderate right mild left neuroforaminal stenosis. There is mild spinal canal stenosis. C5-C6: Mild disc osteophyte complex. There is mild facet arthropathy. There is moderate uncovertebral joint disease. There is moderate neuroforaminal stenosis. There is mild spinal canal stenosis. C6-C7: Mild bulging. There is mild facet arthropathy. There is no uncovertebral joint disease. There is no neuroforaminal stenosis. There is no spinal canal stenosis. C7-T1: Mild disc osteophyte complex. There is moderate facet arthropathy. There is mild uncovertebral joint disease. There is no neuroforaminal stenosis. There is no spinal canal stenosis. THORACIC SPINE: There is mild scoliosis. Vertebral bodies demonstrate normal signal intensity on all sequences except for the level of T12-L1 which demonstrates extensive Modic changes.. There are no compression fractures. The spinal cord demonstrates normal signal intensity on all sequences. Degenerative disc disease is seen throughout the thoracic spine. Limited views of the chest and abdomen show no soft tissue abnormality. There is no significant canal stenosis throughout the thoracic spine. Procedure Note David Perez MD PhD - 01/01/2025 EXAMINATION: 1. Magnetic resonance imaging (MRI) of the cervical spine without contrast 2. Magnetic resonance imaging (MRI) of the thoracic spine without contrast HISTORY: Spinal stenosis presurgical planning TECHNIQUE: Multiplanar multi-weighted MRI of the cervical spine was performed without intravenous contrast using the standard protocol. Multiplanar multi-weighted MRI of the thoracic spine was performed without intravenous contrast using the standard protocol. COMPARISON: Comparisons are available at the lumbar spine only. FINDINGS: CERVICAL SPINE: The alignment of the cervical spine is normal. Vertebral bodies demonstrate Modic changes at multiple levels. No acute fracture is identified. The craniocervical junction is normal. The visualized portions of the skull base and the posterior fossa are normal. The spinal cord demonstrates normal signal intensity on all sequences. Severe degenerative disc disease is seen throughout the cervical spine with partial fusion at C6-C7. There are no annular fissures identified. No soft tissue abnormality is identified. C2-C3: The disk is normal in configuration. There is mild facet arthropathy. There is no uncovertebral joint disease. There is no neuroforaminal stenosis. There is no spinal canal stenosis. C3-C4: Mild disc osteophyte complex. There is mild facet arthropathy. There is mild uncovertebral joint disease. There is moderate to severe neuroforaminal stenosis. There is mild spinal canal stenosis. C4-C5: Mild disc osteophyte complex. There is mild facet arthropathy. There is mild uncovertebral joint disease. There is moderate right mild left neuroforaminal stenosis. There is mild spinal canal stenosis. C5-C6: Mild disc osteophyte complex. There is mild facet arthropathy. There is moderate uncovertebral joint disease. There is moderate neuroforaminal stenosis. There is mild spinal canal stenosis. C6-C7: Mild bulging. There is mild facet arthropathy. There is no uncovertebral joint disease. There is no neuroforaminal stenosis. There is no spinal canal stenosis. C7-T1: Mild disc osteophyte complex. There is moderate facet arthropathy. There is mild uncovertebral joint disease. There is no neuroforaminal stenosis. There is no spinal canal stenosis. THORACIC SPINE: There is mild scoliosis. Vertebral bodies demonstrate normal signal intensity on all sequences except for the level of T12-L1 which demonstrates extensive Modic changes.. There are no compression fractures. The spinal cord demonstrates normal signal intensity on all sequences. Degenerative disc disease is seen throughout the thoracic spine. Limited views of the chest and abdomen show no soft tissue abnormality. There is no significant canal stenosis throughout the thoracic spine. IMPRESSION: 1. Moderate degenerative changes of the cervical spine. 2. Mild degenerative changes of the thoracic spine. Electronically signed by: David Perez M.D. Vidal Pike DO [facility] MRI PROCEDURES Final Result * TYPE AND SCREEN 14 DAY (12/31/2024 3:54 PM CDT) ABO Rh B Positive Kelley, indirect Negative [facility] Blood 12/31/2024 3:54 PM CDT 12/31/2024 4:29 PM CDT Narrative [facility] - 12/31/2024 5:21 PM CDT Is this test being ordered in advance for a procedure?->Yes Expected date of procedure:->01/10/25 Has the patient been transfused in the past 3 months?->No Alicia Johnson [employer] LAB BLOOD BANK TEST ORDERABLE S Final Result Performing Organization Address [facility] de Phone Number [facility] [place] [address] * eGFR (12/31/2024 3:54 PM CDT) eGFR 89 >=60 mL/min/1. 73 m2 Comment: Interpretive Data Reference Interval Normal >/= 90 mL/min/1.73m2 Mildly decreased* 60 - 89 mL/min/1.73m2 Mildly to moderately decreased 45 - 59 mL/min/1.73m2 Moderately to severely decreased 30 - 44 mL/min/1.73m2 Severely decreased 15 - 29 mL/min/1.73m2 Kidney Failure < 15 mL/min/1.73m2 *Relative to young adult level Estimated glomerular filtration rate is determined by the 2020 CKD-EPI equation recommended by the National Kidney [employer] (A Unifying Approach to GFR Estimation: Recommendations of the NKF-ASK Task Force on Reassessing the Inclusion of Race in Diagnosing Kidney Disease, JASN 202). The CKD-EPI equation should not be used for patients with unstable renal function and has not been validated in children and those over 70. Current interpretive data was last reviewed 2021. Blood 12/31/2024 3:54 PM CDT 12/31/2024 4:27 PM CDT us Vidal Pike DO LAB BLOOD ORDERABLES Final Resu lt Performing Organization Address [facility] Co de Phone Number [facility] [place] [address] * Differential, auto (12/31/2024 3:54 PM CDT) Neutrophil abs 5.81 1.50 - 6.50 K/cumm Imm gran abs 0.03 0.00 - 0.10 K/cumm [facility] Lymphocyte abs 2.06 0.80 - 3.30 K/cumm [facility] Monocyte abs 0.63 0.20 - 0.80 K/cumm [facility] Eosinophil abs 0.15 0.00 - 0.50 K/cumm [facility] Basophil abs 0.05 0.00 - 0.10 K/cumm [facility] Neutrophil pct 66.6 % [facility] Comment: Interpretive Data Percent cell count reference ranges are not reported, since discordance with absolute values may lead to misinterpretation of CBC data. Current Interpretive Data was last revised on 2017. Imm gran pct 0.3 % [facility] Comment: Interpretive Data Percent cell count reference ranges are not reported, since discordance with absolute values may lead to misinterpretation of CBC data. Current Interpretive Data was last revised on 2017. Lymphocyte pct 23.6 % [facility] Comment: Interpretive Data Percent cell count reference ranges are not reported, since discordance with absolute values may lead to misinterpretation of CBC data. Current Interpretive Data was last revised on 2017. Monocyte pct 7.2 % [facility] Comment: Interpretive Data Percent cell count reference ranges are not reported, since discordance with absolute values may lead to misinterpretation of CBC data. Current Interpretive Data was last revised on 2017. Eosinophil pct 1.7 % [facility] Comment: Interpretive Data Percent cell count reference ranges are not reported, since discordance with absolute values may lead to misinterpretation of CBC data. Current Interpretive Data was last revised on 2017. Basophil pct 0.6 % [facility] Comment: Interpretive Data Percent cell count reference ranges are not reported, since discordance with absolute values may lead to misinterpretation of CBC data. Current Interpretive Data was last revised on 2017. Blood 12/31/2024 3:54 PM CDT 12/31/2024 4:27 PM CDT Vidal Pike DO LAB BLOOD ORDERABLES Final Resu lt Performing Organization Address [facility] Co de Phone Number [place] [address] * CPAP aPTT algorithm (12/31/2024 3:54 PM CDT) aPTT 30 28 - 38 sec Comment: Interpretive Data Heparin therapeutic range: 66.0 - 100.0 seconds. Range based on correlation with therapeutic heparin activity range of 0.3 - 0.7 Units/mL. Current interpretive data was last revised on 2023. Blood 12/31/2024 3:54 PM CDT 12/31/2024 4:26 PM CDT Alicia Johnson NP LAB BLOOD ORDERABLES Final Re sult Performing Organization Address [facility] Co de Phone Number [facility] One [facility] [place] [address] * Urinalysis reflex to microscopic and culture Urine, clean voided (12/31/2024 3:54 PM CDT) Color, ur Yellow Yellow Clarity, ur Clear Clear [facility] Specific gravity, ur 1.021 1.003 - 1.030 [facility] pH, urine 7.0 [facility] Comment: Interpretive Data U rine pH is affected by diet, medications, systemic acid-base disturbances, and renal tubular function. pH may affect urinary stone formation. For example, urine pH below 6.0 may help reduce the tendency for calcium phosphate stones and pH greater than 6.0 may reduce the tendency for uric acid stone formation. Source: [facility] Current Interpretive Data was last revised on 2017 Protein, ur ql Trace Negative [facility] Glucose, ur ql Negative Negative [facility] Ketones, ur Negative Negative [facility] Bilirubin, ur Negative Negative [facility] Blood, ur Negative Negative [facility] Urobilinogen, ur <2.0 <2.0 mg/dL [facility] Nitrite, ur Negative Negative [facility] Leukocyte esterase, ur Negative Negative [facility] UA reflex comment Reflex conditions for microscopic UA and culture not met. [facility] Urine, clean voided 12/31/2024 3:54 PM CDT 12/31/2024 4:23 PM CDT Vidal Pike DO LAB MICROBIOLOGY - GENERAL ORDE RABLES Final Result Performing Organization Address City/[facility]/ZIP Co de Phone Number [facility] [place] [address] * CBC with auto differential (12/31/2024 3:54 PM CDT) Pathologist [facility] WBC 8.73 3.80 - 9.90 K/cumm Hgb 15.7 13.0 - 17.5 g/dL [facility] Hct 46.0 38.9 - 50.3 % [facility] Plt 158 150 - 400 K/cumm [facility] MPV 11.8 9.1 - 12.3 fL [facility] RBC 4.86 4.30 - 5.80 M/cumm [facility] MCV 94.7 81.3 - 96.4 fL [facility] MCH 32.3 27.1 - 33.3 pg [facility] MCHC 34.1 32.3 - 35.7 g/dL [facility] RDW CV 13.6 11.1 - 14.9 % [facility] RDW SD 47.5 35.7 - 48.1 fL [facility] NRBC abs 0.00 0.00 - 0.01 K/cumm [facility] Blood 12/31/2024 3:54 PM CDT 12/31/2024 4:27 PM CDT Vidal Pike DO LAB BLOOD ORDERABLES Final Resu lt [facility] [place] [address] * Protime-INR (12/31/2024 3:54 PM CDT) Pathologist [facility] PT 12.1 9.7 - 13.0 sec INR 1.12 0.90 - 1.20 [facility] Comment: Interpretive data Oral anticoagulant therapeutic ranges: Venous thromboembolism prophylaxis or treatment: 2.0-3.0 CARDIOLOGY Standard range: 2.0-3.0 High-intensity range: 2.5-3.5 Refer to indication-specific guidelines for appropriate target ranges for prosthetic heart valve replacement. Current interpretive data was last revised on 2019. Blood 12/31/2024 3:54 PM CDT 12/31/2024 4:26 PM CDT us Vidal Pike DO LAB BLOOD ORDERABLES Final Resu lt [facility] [place] [address] * Basic metabolic panel (12/31/2024 3:54 PM CDT) [facility] Sodium 142 135 - 145 mmol/L Potassium, pl 4.6 3.3 - 4.9 mmol/L [facility] Chloride 106 97 - 110 mmol/L [facility] CO2 27 22 - 32 mmol/L [facility] Anion gap 9 2 - 15 mmol/L [facility] BUN 12 6 - 25 mg/dL [facility] Creatinine 0.82 0.80 - 1.30 mg/dL [facility] Glucose 98 70 - 199 mg/dL [facility] Comment: Interpretive Data Fasting glucose >/= 126 mg/dl is diagnostic for diabetes. Fasting is defined as no caloric intake for at least 8 hours. Fasting glucose between 100 mg/dl to 125 mg/dl is diagnostic of prediabetes. In a patient with classic symptoms of hyperglycemia or hyperglycemic crisis, a random glucose >/= 200 mg/dl is diagnostic for diabetes. In the absence of unequivocal hyperglycemia, results should be confirmed by repeat testing. The classification and Diagnosis of Diabetes Diabetes Care 202; 46: S19-S40. Current interpretive data was last revised 2022. Calcium 9.2 8.5 - 10.3 mg/dL [facility] Blood 12/31/2024 3:54 PM CDT 12/31/2024 4:27 PM CDT Vidal Pike DO LAB BLOOD ORDERABLES Final Resu lt [facility] [place] [address] * XR Hip Left 2+ Vw (11/25/2024 1:05 PM CDT) Anatomical Region Laterality Modality Lower Extremities, Hip, Pelvis Left C omputed Radiography 11/28/2024 6:46 PM CDT Narrative 11/28/2024 6:49 PM CDT EXAM DESCRIPTION: XR HIP LEFT 2 OR 3 VIEWS REASON FOR STUDY: accidental fall Pt sts fall onto posterior left hip 4 days ago. 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 Pt ambulatory w/ walker assistance. TECHNIQUE: There are 2 radiographic view(s) of the left hip . COMPARISON: Prior films 11/01/2024 FINDINGS: Patient demonstrates left hip arthroplasty with no acute fracture of the osseous or prosthetic components. 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 No change from the prior x-rays. Soft tissues are unremarkable. IMPRESSION: 1. Left hip arthroplasty with no acute fracture. 2. 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 No change from the prior x-rays. THIS IS AN ELECTRONICALLY VERIFIED FINAL REPORT 11/28/2024 6:49 PM - Electronically signed by Clarence Hendrix M.D. MJ T: Report ID: [id number] Reading Location: [id number] Procedure Note Clarence Hendrix MD - 11/28/2024 EXAM DESCRIPTION: XR HIP LEFT 2 OR 3 VIEWS REASON FOR STUDY: accidental fall Pt sts fall onto posterior left hip 4 days ago. Hx of left hip [id number] years ago. Pt ambulatory w/ walker assistance. TECHNIQUE: There are 2 radiographic view(s) of the left hip . COMPARISON: Prior films 11/01/2024 FINDINGS: Patient demonstrates left hip arthroplasty with no acutefracture of the osseous or prosthetic components. Relative protrusio of theacetabular cup with no evidence of fracture. No change from the prior x-rays. Soft tissues are unremarkable. IMPRESSION: 1. Left hip arthroplasty with no acute fracture. 2. Relative protrusio of the acetabular cup with no evidence offracture. No change from the prior x-rays. THIS IS AN ELECTRONICALLY VERIFIED FINAL REPORT 11/28/2024 6:49 PM - Electronically signed by Clarence ALLISON T: Report ID: [id number] Reading Location: [id number] us Clarence Zamora Jr., MD IMG XR PROCEDURES Fin al Result * CT Thoracic Spine WO Contrast (11/25/2024 12:47 PM CDT) Anatomical Region Laterality Modality Spine N/A Computed Tomogra phy 12/06/2024 3:24 PM CDT Narrative 12/06/2024 8:28 PM CDT EXAM DESCRIPTION: CT THORACIC SPINE WO CONTRAST REASON FOR STUDY: back pain 79 y.o. male presenting for evaluation of lumbar disc bulge. Patient reports difficulty walking, weakness in the bilateral legs, aching and cramping in the bilateral legs. Patient reports that he has been dealing with this for about 6 weeks now. Patient also reports back pain but states that this is tolerable and his biggest concern is his legs and ambulation TECHNIQUE: Axial images acquired through the thoracic spine without intravenous contrast. Images reviewed with lung, soft tissue and bone windows. Reconstructed coronal and sagittal MPR images reviewed. Images stored on PACS. Automated exposure control was used as a dose optimization technique for this examination. COMPARISON: None available. FINDINGS: ALIGNMENT: Anterior-posterior alignment is maintained. VERTEBRAE: The osseous structures are diffusely demineralized and limits the evaluation for a subtle nondisplaced fracture. There are a few scattered Schmorl's nodes. The T12-L1 opposing endplate lucent and sclerotic changes are nonspecific and presumed to be degenerative in nature. If there is concern for an infectious process then a contrast-enhanced MRI can be obtained. Additional multilevel endplate degenerative changes and marginal spur formation ranging up to moderate to severe. The T9 vertebral body rounded lucent lesion (series 5, image 9 and series 4, image 64) measuring up to 1 cm is nonspecific and could reflect an intraosseous hemangioma or large Schmorl's node. If there is concern for marrow replacing process then dedicated contrast-enhanced MRI can be obtained. DISC HEIGHT: Multilevel intervertebral disc height loss. Vacuum disc phenomenon from T11-T12 through L1-L2. HARDWARE: None in the spine. THORACIC DISCS T1-T12: Suboptimally evaluated by non myelographic CT technique. T12-L1: Ventral and right subarticular zone soft tissue focus with areas of gas could reflect a large herniated disc with vacuum disc phenomenon contributing to at least moderate right ventral spinal canal stenosis. Moderate to severe right and moderate left osseous neural foraminal narrowing. At the remainder of the thoracic levels there is no gross osseous spinal canal stenosis. SOFT TISSUES: Partially imaged moderate size hiatal hernia. Surgical clips in the gallbladder fossa. LOWER CERVICAL: Incompletely imaged. Multilevel degenerative changes without high-grade osseous spinal canal stenosis. UPPER LUMBAR: Incompletely imaged. Better assessed on the concurrently obtained lumbar spine CT. IMPRESSION: 1. The T12-L1 opposing endplate lucent and sclerotic changes are nonspecific and presumed to be degenerative in nature. If there is concern for an infectious process then please correlate with laboratory data and contrast-enhanced MRI. 2. Thoracic spine disc degeneration ranging upto moderate to severe with thickened ligamentum flavum and facet arthropathy. Suspected large herniated disc at T12-L1 contributing to right ventral osseous spinal canal and right lateral recess narrowing. 3. Additional findings as above. THIS IS AN ELECTRONICALLY VERIFIED FINAL REPORT 12/06/2024 8:28 PM - Electronically signed by Adolfo Thomas D.O. AP T: Report ID: [id number] Reading Location: [id number] Procedure Note Adolfo Thomas, DO - 12/06/2024 EXAM DESCRIPTION: CT THORACIC SPINE WO CONTRAST REASON FOR STUDY: back pain 79 y.o. male presenting for evaluation of lumbar disc bulge. Patientreports difficulty walking, weakness in the bilateral legs, aching and cramping inthe bilateral legs. Patient reports that he has been dealing with this forabout 6 weeks now. Patient also reports back pain but states that this is tolerable and his biggest concern is his legs and ambulation TECHNIQUE: Axial images acquired through the thoracic spine without intravenous contrast. Images reviewed with lung, soft tissue and bone windows. Reconstructed coronal and sagittal MPR images reviewed. Images stored on PACS. Automated exposure control was used as a dose optimization technique for this examination. COMPARISON: None available. FINDINGS: ALIGNMENT: Anterior-posterior alignment is maintained. VERTEBRAE: The osseous structures are diffusely demineralized and limitsthe evaluation for a subtle nondisplaced fracture. There are a few scattered Schmorl's nodes. The T12-L1 opposing endplate lucent and scleroticchanges are nonspecific and presumed to be degenerative in nature. If there is concern for an infectious process then a contrast-enhanced MRI can be obtained. Additional multilevel endplate degenerative changes andmarginal spur formation ranging up to moderate to severe. The T9 vertebral body rounded lucent lesion (series 5, image 9 and series 4, image 64) measuringup to 1 cm is nonspecific and could reflect an intraosseous hemangioma orlarge Schmorl's node. If there is concern for marrow replacing process then dedicated contrast-enhanced MRI can be obtained. DISC HEIGHT: Multilevel intervertebral disc height loss. Vacuum disc phenomenon from T11-T12 through L1-L2. HARDWARE: None in the spine. THORACIC DISCS T1-T12: Suboptimally evaluated by non myelographic CT technique. T12-L1: Ventral and right subarticular zone soft tissue focus with areasof gas could reflect a large herniated disc with vacuum disc phenomenon contributing to at least moderate right ventral spinal canal stenosis. Moderate to severe right and moderate left osseous neural foraminalnarrowing. At the remainder of the thoracic levels there is no gross osseous spinalcanal stenosis. SOFT TISSUES: Partially imaged moderate size hiatal hernia. Surgicalclips in the gallbladder fossa. LOWER CERVICAL: Incompletely imaged. Multilevel degenerative changes without high-grade osseous spinal canal stenosis. UPPER LUMBAR: Incompletely imaged. Better assessed on the concurrently obtained lumbar spine CT. IMPRESSION: 1. The T12-L1 opposing endplate lucent and sclerotic changes arenonspecific and presumed to be degenerative in nature. If there is concern for an infectious process then please correlate with laboratory data and contrast-enhanced MRI. 2. Thoracic spine disc degeneration ranging upto moderate to severe with thickened ligamentum flavum and facet arthropathy. Suspected largeherniated disc at T12-L1 contributing to right ventral osseous spinal canal andright lateral recess narrowing. 3. Additional findings as above. THIS IS AN ELECTRONICALLY VERIFIED FINAL REPORT 12/06/2024 8:28 PM - Electronically signed by Adolfo Thomas D.O. AP T: Report ID: [id number] Reading Location: [place] [id number] us Hugo Harris MD IMG CT PROCEDURES Final Result * CT Lumbar Spine WO Contrast (11/25/2024 12:46 PM CDT) Anatomical Region Laterality Modality Spine N/A Computed Tomogra phy 12/06/2024 3:28 PM CDT Narrative 12/06/2024 8:27 PM CDT EXAM DESCRIPTION: CT LUMBAR SPINE WO CONTRAST REASON FOR STUDY: back pain 79 y.o. male presenting for evaluation of lumbar disc bulge. Patient reports difficulty walking, weakness in the bilateral legs, aching and cramping in the bilateral legs. Patient reports that he has been dealing with this for about 6 weeks now. Patient also reports back pain but states that this is tolerable and his biggest concern is his legs and ambulation TECHNIQUE: Axial images acquired through the lumbar spine without intravenous contrast. Reconstructed coronal and sagittal MPR images reviewed. All images stored on PACS. Automated exposure control was used as a dose optimization technique for this examination. COMPARISON: Lumbar spine mri dated 12/20/2023 and lumbar spine radiographs dated 11/01/2024. FINDINGS: SEGMENTATION: 5 bne-gws-vyvfqby lumbar type vertebral bodies. ALIGNMENT: Dextroconvex upper and levoconvex lower lumbar curvature. There is mild retrolisthesis of L1 on L2 and L3 on L4. VERTEBRAE: Multilevel endplate degenerative changes and marginal spur formation ranging up to severe. Large lucencies including of the inferior endplate of L3 and superior endplate of L5 are indeterminate presumed to be degenerative in nature and/or large Schmorl's nodes. Diffuse facet arthropathy ranging from moderate to severe. There are inter spinous degenerative changes. DISC HEIGHT: Multilevel intervertebral disc height loss ranging up to severe with vacuum disc phenomenon. HARDWARE: None in the spine. INDIVIDUAL DISC LEVELS: Suboptimally evaluated by non myelographic CT technique. L1-L2: Retrolisthesis of L1 on L2 with unroofing of the disc. Thickened ligamentum flavum and facet arthropathy. No significant osseous spinal canal or neural foraminal narrowing. L2-L3: Retrolisthesis of L2 on L3 with unroofing of the disc and marginal spur formation. Thickened ligamentum flavum and facet arthropathy. No significant osseous spinal canal stenosis. Mild bilateral osseous neural foraminal narrowing. L3-L4: Retrolisthesis of L3 on L4 with unroofing of the disc and marginal spur formation. Thickened ligamentum flavum and facet arthropathy. Trace facet joint effusion. Mild osseous spinal canal stenosis. Ottpg-hvqbuco-onxu-left osseous lateral recess narrowing. Moderate left and yfkk-bi-zejoxkfr right osseous neural foraminal narrowing. L4-L5: Disc bulge with marginal spur formation. Thickened ligamentum flavum and facet arthropathy. Tfuh-xf-pwrckdxf osseous spinal canal stenosis. Hemig-tssfwco-gtul-left lateral recess narrowing. Mild left and moderate to severe right osseous neural foraminal narrowing. L5-S1: Disc bulge with marginal spur formation. Bilateral facet arthropathy. No significant osseous spinal canal stenosis. Mild to moderate right and mild left osseous neural foraminal narrowing. SOFT TISSUES: Calcified plaque in the imaged abdominal aorta and major branch vessels. Surgical clips in the gallbladder fossa. Left renal nonobstructing 1-2 mm calculus. IMPRESSION: 1. Severe lumbar disc degeneration with thickened ligamentum flavum and facet arthropathy as described. The osseous spinal canal stenosis is most noticeable at L3-L4 and L4-L5. 2. Varying degrees of bilateral osseous neural foraminal stenosis and additional findings as above. THIS IS AN ELECTRONICALLY VERIFIED FINAL REPORT 12/06/2024 8:27 PM - Electronically signed by Adolfo YEBOAH T: Report ID: [id number] Reading Location: [place] [id number] Procedure Note Adolfo Thomas, DO - 12/06/2024 EXAM DESCRIPTION: CT LUMBAR SPINE WO CONTRAST REASON FOR STUDY: back pain 79 y.o. male presenting for evaluation of lumbar disc bulge. Patientreports difficulty walking, weakness in the bilateral legs, aching and cramping inthe bilateral legs. Patient reports that he has been dealing with this forabout 6 weeks now. Patient also reports back pain but states that this is tolerable and his biggest concern is his legs and ambulation TECHNIQUE: Axial images acquired through the lumbar spine withoutintravenous contrast. Reconstructed coronal and sagittal MPR images reviewed. Allimages stored on PACS. Automated exposure control was used as a dose optimization technique forthis examination. COMPARISON: Lumbar spine mri dated 12/20/2023 and lumbar spine radiographsdated 11/01/2024. FINDINGS: SEGMENTATION: 5 lxg-nld-berdzdf lumbar type vertebral bodies. ALIGNMENT: Dextroconvex upper and levoconvex lower lumbar curvature.There is mild retrolisthesis of L1 on L2 and L3 on L4. VERTEBRAE: Multilevel endplate degenerative changes and marginal spur formation ranging up to severe. Large lucencies including of the inferior endplate of L3 and superior endplate of L5 are indeterminate presumed cristian degenerative in nature and/or large Schmorl's nodes. Diffuse facet arthropathy ranging from moderate to severe. There are inter spinous degenerative changes. DISC HEIGHT: Multilevel intervertebral disc height loss ranging up tosevere with vacuum disc phenomenon. HARDWARE: None in the spine. INDIVIDUAL DISC LEVELS: Suboptimally evaluated by non myelographic CT technique. L1-L2: Retrolisthesis of L1 on L2 with unroofing of the disc. Thickened ligamentum flavum and facet arthropathy. No significant osseous spinalcanal or neural foraminal narrowing. L2-L3: Retrolisthesis of L2 on L3 with unroofing of the disc and marginalspur formation. Thickened ligamentum flavum and facet arthropathy. Nosignificant osseous spinal canal stenosis. Mild bilateral osseous neural foraminal narrowing. L3-L4: Retrolisthesis of L3 on L4 with unroofing of the disc and marginalspur formation. Thickened ligamentum flavum and facet arthropathy. Tracefacet joint effusion. Mild osseous spinal canal stenosis.Usrqf-rhkqske-nmkn-left osseous lateral recess narrowing. Moderate left and dmsc-el-vdqodihoaafrh osseous neural foraminal narrowing. L4-L5: Disc bulge with marginal spur formation. Thickened ligamentumflavum and facet arthropathy. Mfmo-sn-ceqcipks osseous spinal canal stenosis. Cnunf-gmlyavw-zapo-left lateral recess narrowing. Mild left and moderateto severe right osseous neural foraminal narrowing. L5-S1: Disc bulge with marginal spur formation. Bilateral facetarthropathy. No significant osseous spinal canal stenosis. Mild to moderate right andmild left osseous neural foraminal narrowing. SOFT TISSUES: Calcified plaque in the imaged abdominal aorta and major branch vessels. Surgical clips in the gallbladder fossa. Left renal nonobstructing 1-2 mm calculus. IMPRESSION: 1. Severe lumbar disc degeneration with thickened ligamentum flavum and facet arthropathy as described. The osseous spinal canal stenosis is most noticeable at L3-L4 and L4-L5. 2. Varying degrees of bilateral osseous neural foraminal stenosis and additional findings as above. THIS IS AN ELECTRONICALLY VERIFIED FINAL REPORT 12/06/2024 8:27 PM - Electronically signed by Adolfo YEBOAH T: Report ID: [id number] Reading Location: [id number] Hugo Harris MD IMG CT PROCEDURES Final Result * MSK MR Outside Reference (11/05/2024 12:00 AM CDT) Narrative [facility] - 11/17/2024 10:22 AM CDT This order has been auto-finalized and does not contain a result. us Provider Transcribed Order IMG MRI PROCEDURES Fi nal Result [email or web address] * XR Spine Lumbar Ap Lat Flex Ext min 4 Views (11/01/2024 2:38 PM CDT) Anatomical Region Laterality Modality L-spine N/A Computed Radiogr aphy 11/01/2024 8:31 PM CDT Narrative 11/01/2024 8:35 PM CDT EXAM DESCRIPTION: XR SCOLIOSIS AP AND LATERAL; XR SPINE LUMBAR AP LAT FLEX EXT MIN 4 VIEWS REASON FOR STUDY: lower back pain and bilateral leg weakness Increased hermelindo leg pain, stiffness, weakness for 2 months,no injury FINDINGS: Two views thoracolumbar spine and four views lumbar spine submitted with comparison 12/20/2023. Mild dextrocurvature of the thoracic spine. Zdsm-vt-czochssp multilevel thoracic degenerative disc disease. Left inferior pelvic tilt is present. Old healed left-sided rib fracture is noted. Moderate L1-L3, mild L3-L5 and severe L5-S1 degenerative disc disease with inferior lumbar facet osteoarthritis. Arterial atherosclerosis is present. Flexion-extension views demonstrate no abnormal translation. 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 IMPRESSION: Iimh-hs-svaddkhd multilevel thoracic degenerative disc disease. Moderate L1-L3, mild L3-L5 and severe L5-S1 degenerative disc disease with inferior lumbar facet osteoarthritis. 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 THIS IS AN ELECTRONICALLY VERIFIED FINAL REPORT 11/01/2024 8:35 PM - Electronically signed by Clarence Wasserman M.D. T: Report ID: [id number] Reading Location: [id number] Procedure Note Clarence Wasserman MD - 11/01/2024 EXAM DESCRIPTION: XR SCOLIOSIS AP AND LATERAL; XR SPINE LUMBAR AP LAT FLEX EXT MIN 4 VIEWS REASON FOR STUDY: lower back pain and bilateral leg weakness Increased hermelindo leg pain, stiffness, weakness for 2 months,no injury FINDINGS: Two views thoracolumbar spine and four views lumbar spinesubmitted with comparison 12/20/2023. Mild dextrocurvature of the thoracic spine. Hwjn-ui-svoemdkq multilevel thoracic degenerative disc disease. Left inferior pelvic tilt is present. Old healed left-sided rib fracture is noted. Moderate L1-L3, mild L3-L5and severe L5-S1 degenerative disc disease with inferior lumbar facet osteoarthritis. Arterial atherosclerosis is present. Flexion-extensionviews demonstrate no abnormal translation. Left hip arthroplasty withosteolysis and protrusio of the acetabular component noted. IMPRESSION: Spwq-rk-tjfdeome multilevel thoracic degenerative disc disease. Moderate L1-L3, mild L3-L5 and severe L5-S1 degenerative disc diseasewith inferior lumbar facet osteoarthritis. 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 THIS IS AN ELECTRONICALLY VERIFIED FINAL REPORT 11/01/2024 8:35 PM - Electronically signed by Clarence Wasserman M.D. T: Report ID: [id number] Reading Location: [id number] [facility] IMG XR PROCEDURES Final Re sult * XR Scoliosis 2 or 3 Views (11/01/2024 2:38 PM CDT) Anatomical Region Laterality Modality Spine N/A Computed Radiogr aphy 11/01/2024 8:31 PM CDT Narrative 11/01/2024 8:35 PM CDT EXAM DESCRIPTION: XR SCOLIOSIS AP AND LATERAL; XR SPINE LUMBAR AP LAT FLEX EXT MIN 4 VIEWS REASON FOR STUDY: lower back pain and bilateral leg weakness Increased hermelindo leg pain, stiffness, weakness for 2 months,no injury FINDINGS: Two views thoracolumbar spine and four views lumbar spine submitted with comparison 12/20/2023. Mild dextrocurvature of the thoracic spine. Onjc-er-hkobtidd multilevel thoracic degenerative disc disease. Left inferior pelvic tilt is present. Old healed left-sided rib fracture is noted. Moderate L1-L3, mild L3-L5 and severe L5-S1 degenerative disc disease with inferior lumbar facet osteoarthritis. Arterial atherosclerosis is present. Flexion-extension views demonstrate no abnormal translation. 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 IMPRESSION: Wvbd-ws-nedrlzot multilevel thoracic degenerative disc disease. Moderate L1-L3, mild L3-L5 and severe L5-S1 degenerative disc disease with inferior lumbar facet osteoarthritis. 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 THIS IS AN ELECTRONICALLY VERIFIED FINAL REPORT 11/01/2024 8:35 PM - Electronically signed by Clarence Wasserman M.D. T: Report ID: [id number] Reading Location: [id number] Procedure Note Clarence Wasserman MD - 11/01/2024 EXAM DESCRIPTION: XR SCOLIOSIS AP AND LATERAL; XR SPINE LUMBAR AP LAT FLEX EXT MIN 4 VIEWS REASON FOR STUDY: lower back pain and bilateral leg weakness Increased hermelindo leg pain, stiffness, weakness for 2 months,no injury FINDINGS: Two views thoracolumbar spine and four views lumbar spinesubmitted with comparison 12/20/2023. Mild dextrocurvature of the thoracic spine. Gqzh-vn-sbvtbshr multilevel thoracic degenerative disc disease. Left inferior pelvic tilt is present. Old healed left-sided rib fracture is noted. Moderate L1-L3, mild L3-L5and severe L5-S1 degenerative disc disease with inferior lumbar facet osteoarthritis. Arterial atherosclerosis is present. Flexion-extensionviews demonstrate no abnormal translation. Left hip arthroplasty withosteolysis and protrusio of the acetabular component noted. IMPRESSION: Uwgl-vv-otxiptxf multilevel thoracic degenerative disc disease. Moderate L1-L3, mild L3-L5 and severe L5-S1 degenerative disc diseasewith inferior lumbar facet osteoarthritis. 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 THIS IS AN ELECTRONICALLY VERIFIED FINAL REPORT 11/01/2024 8:35 PM - Electronically signed by Clarence Wasserman M.D. T: Report ID: [id number] Reading Location: [place] [address] [facility] IMG XR PROCEDURES Final Re sult * COLONOSCOPY REPORT (04/19/2016) Anatomical Region Laterality Modality Other Narrative 04/19/2016 Ordered by an unspecified provider. Historical Provider GI PROCEDURE ORDERABLES F inal Result from Last 3 Months or Most Recently Relevant to Health Maintenance Insurance T MEDICARE AET MEDICARE AET MEDICARE Care Teams Multimedia Services Manager Relationship Specialty Start Date End Date Clarence Zamora Jr., MD [address] [place] [id number] PCP - General Internal Medicine 04/26/22 Sloan Montano MD Consulting Physician Urology 01/17/22 Vidal Pike DO [address] [place] [address] Consulting Physician Neurosurgery 12/08/24
--- OUTSIDE RECORDS SUMMARY | 2025-01-24 14:49 | XMS_ITS ---
Author Organization [facility] Address [address] [place] [address] Care Team Providers Care Liquified Natural Gas Specialist Name Role Phone Sloan Montano MD Unavailable [phone] Noah Li MD, Clarence Xie Primary Care Provide r Vidal Pike DO Unavailable [phone] Active Problems Problem Noted Date Diagnosed Date Thoracic myelopathy 12/13/2024 Spinal stenosis of lumbar re gion without neurogenic claudication 05/21/2024 Assessment & Plan (05/21/2024 11:03 AM TRANSPORTATION ENGINEERING TECHNICIAN): Ongoing. Continue Meloxicam 15 mg daily. MRI [...] and establishing or updating healthcare power of senior attorney document and providing our office with a [...] Understands Assessment & Plan (08/12/2022 4:40 PM TRANSPORTATION ENGINEERING TECHNICIAN): We are stopping propanolol because of lack of results and low HR He is asymptomatic from a low heart rate stand point We will try gabapentin, he can uptritate as needed to 300 mg twice a dosing He will contact us about his progression Assessment & Plan (04/26/2022 4:23 PM TRANSPORTATION ENGINEERING TECHNICIAN): Has taken lorazepam for years for this [...] 12/09/2019 Assessment & Plan (08/12/2022 4:26 PM TRANSPORTATION ENGINEERING TECHNICIAN): Will follow with urology about this Assessment [...] weight Assessment & Plan (08/12/2022 4:27 PM TRANSPORTATION ENGINEERING TECHNICIAN): With HLD Monitor weight Assessment & Plan [...] and establishing or updating healthcare power of senior attorney document and providing our office with a [...] dose Assessment & Plan (04/26/2022 4:04 PM TRANSPORTATION ENGINEERING TECHNICIAN): Chronic stable Well controlled Continue current medications [...] nuclear cataract 07/13/2013 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 Past Treatment and Therapy Plans No past plan information found. Lifetime Dose Tracking * Chemical Lifetime Dose Automatic Entry Manual Entr y Fluoro Time 0.1 minutes 0.1 minutes 0 minutes Air kerma at the reference point (Ka,r) 0.1 mGy 0 .1 mGy 0 mGy DLP 3,072 mGycm 3,072 mGycm 0 mGycm Resolved Problems Problem Noted Date Diagnosed Date Resolved Date Chest wall pain 08/18/2018 08/12/2022 Assessment & Plan (08/18/2018 3:45 PM TRANSPORTATION ENGINEERING TECHNICIAN): The pain is probably due to muscular strain. If no better will get xrays of ribs Acute left-sided low back pain 11/17/2017 08/12/2022 Assessment & Plan (11/17/2017 2:44 PM CDT): The pain is probably due to muscle strain. No treatment is needed BMI 35.0-35.9,adult 11/17/2017 04/26/20 22 Assessment & Plan (08/18/2018 3:44 PM TRANSPORTATION ENGINEERING TECHNICIAN): BMI Follow-up includes: education provided. Assessment & Plan (12/04/2017 10:23 AM CDT): BMI Follow-up includes: education provided. Assessment & Plan (11/17/2017 2:45 PM CDT): .BMI Follow-up includes: education provided.
--- OUTSIDE RECORDS SUMMARY | 2025-01-24 14:49 | XMS_ITS | Encounter Summary ---
Author Organization [facility] Healthcare Address [address] [place] [address] Care Team Providers Care Waste Disposal Plant Operator Name Role Phone Sloan Montano MD Unavailable [phone] Noah Li MD, Clarence Xie Primary Care Provide r Vidal Pike DO Unavailable [phone] Reason for Visit * Reason Onset Date Comments INFORMATION CALL 12/10/2024 Encounter Details Date Type Department Care Team (Late st Contact Info) Description 12/10/2024 Nurse Triage [facility] Patient Access [address] [place] [address] Sangeetha Quevedo RN Social History Tobacco Use Types Packs/Day Years Used Date Smoking Tobacco: Never Smokeless Tobacco: Never Alcohol Use Standard Drinks/Week Comments Yes 0 (1 standard drink = 0.6 oz pur e alcohol) AUDIT-C Answer Date Recorded Q1: How often do you have a drink containing alc ohol? Monthly or less 12/09/2024 Q2: How many drinks containi ng alcohol do you have on a typical day when you are drinking? 1 or 2 12/09/2024 Q3: How often do you have si x or more drinks on one occasion? 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 Patient refused suggestion by triage nurse. Wants a pillthat can put him to sleep at night. asking to speak with nurse again. S=CONTINUED RIGHT SIDE PAIN UNABLE TO SLEEP B=Patient's calling back, patient on speaker phone, is very upset, he refused to take the Flexeril or the Lima because it does not help, says he wants a medication that he can take at night to sleep. He said he is NOT going to get any more x-rays or tests, just wants to have surgery on his disc problem. Says he will speak to Dr. Zamora if he calls him this morning, but won't speak to anyone else. A=DISPOSITION PER GUIDELINE=INFORMATION OR ADVICE CALL ONLY R-HOME CARE/SELF CARE INSTRUCTIONS=Verbalized understanding documented in this encounter Plan of Treatment Not on file documented as of this encounter Visit Diagnoses Not on filedocumented in this encounter Care Teams Waste Disposal Plant Operator Relationship Specialty Start Date End Date Clarence Zamora Jr., MD [address] [place] [phone] PCP - General Internal Medicine 04/26/22 Sloan Montano MD Consulting Physician Urology 01/17/22 Vidal Pike DO [facility] [address] [place] [address] Consulting Physician Neurosurgery 12/08/24 documented as of this encounter
--- OUTSIDE RECORDS SUMMARY | 2025-01-24 14:49 | XMS_ITS | Clinical Summary ---
Author Organization [facility] Address [address] [place] [address] Care Team Providers Care Fruit Canner Name Role Phone Noah Li MD, Clarence Gutierrez Primary Care Pro vider OgchatnaleVidal gallegos I DO Unavailable [phone] Allergies Active Allergy Reactions Criticality Noted Date Comments Penicillins Rash Low 12/09/2019 Medications atorvastatin 80 MG tablet Take 1 tablet (80 mg total) by mouth daily. 12/31/2018 Active ezetimibe 10 MG tablet Take 1 tablet (10 mg total) by mouth daily. 04/05/2019 Active LORazepam 1 MG tablet Take 1 tablet (1 mg total) by mouth 3 (three) times daily as needed. 09/02/2019 Active meloxicam (MOBIC) 15 MG tablet Take 1 tablet (15 mg total) by mouth daily. Active tamsulosin (FLOMAX) 0.4 MG Cap Take 1 capsule (0.4 mg total) by mouth daily as needed. Active acetaminophen (TYLENOL) 80 MG chewable tablet Chew 500 mg by mouth every 4 (four) hours as needed for Pain. Active multi vitamin/mineral s (THERA-M ENHANCED) tablet Take 1 tablet by mouth daily. Active gabapentin (NEURONTIN) 100 MG capsule Take 1 capsule (100 mg total) by mouth 3 (three) times daily. 90 capsule 10/01/2024 Active traMADol (ULTRAM) 50 MG tabletIndicatio ns:Acute Pain < 7 Day Supply Take 1 tablet (50 mg total) by mouth every 6 (six) hours as needed for Pain. Indications: Acute Pain < 7 Day Supply 20 tablet 11/30/2024 Active Active Problems Problem Noted Date Diagnosed Date Left ureteral stone 12/09/2019 Encounters Date Type Department Care Team Description 12/28/2024 Travel 11/30/2024 12:08 PM CDT - 11/30/2024 1:39 PM CDT Emergency [facility] Emergency Room [id number] [place] [id number] Derrek Crane MD Knee Pain Discharge Disposition: Home or Self Care (Routine Discharge) 11/30/2024 Travel 11/05/2024 12:26 PM CDT - 11/05/2024 11:59 PM CDT Hospital Encounter [facility] MRI [address] [place] [id number] Anastacio Alston PA Discharge Disposition: Home or Self Care (Routine Discharge) 11/05/2024 Travel 11/02/2024 Telephone [facility] [address] [place] [id number] Franchesca Reyes, PT Orders (MRI Order from [facility] Batista) from Last 3 Months Social History Tobacco Use Types Packs/Day Years Used Date Smoking Tobacco: Never Smokeless Tobacco: Never Alcohol Use Standard Drinks/Week Comments Yes 0 (1 standard drink = 0.6 oz pur e alcohol) ocassionally Sex and Gender Information Value Date Recorded Sex Assigned at Male 11/30/2024 12:35 PM CDT Legal Sex Male 7:19 PM CDT Gender Identity Not on file Sexual Orientation Not on file Last Filed Vital Signs Vital Sign Reading Time Taken Comments Blood Pressure 114/83 11/30/2024 1:00 PM CDT Pulse 88 11/30/2024 1:00 PM CDT Temperature 37 C (98.6 F) 11/30/2024 1:00 PM CDT Respiratory Rate 18 11/30/2024 1:00 PM CDT Oxygen Saturation 93% 11/30/2024 1:00 PM CDT Inhaled Oxygen Concentration - - Weight 97.5 kg (215 lb) 11/30/2024 12:30 PM CDT Height 180.3 cm (5' 11) 11/30/2024 12:30 PM CDT Body Mass Index 29.99 11/30/2024 12:30 PM CDT Plan of Treatment Health Maintenance Due Date Last Done Comments Hepatitis C 1963 Annual Medicare Wellness Visit 2010 RSV Immunization or 60+ Years (1 - 1-dose 75+ series) 2020 COVID-19 Vaccine (3 - 2023-2 5 season) 2024 08/27/2020, 08/06/2020 DTaP, Tdap and Td Vaccines ( 4 - Td or Tdap) 09/10/2031 09/09/2021, 12/23/2014, 05/07/2014 Pneumococcal Vaccine: 50+ Years Completed 04/12/2019, 12/23/2014, 06/16/2001 Zoster Vaccines Completed 11/10/2020, 05/10/2020 Meningococcal B Vaccine Aged Out No l onger eligible based on patient's age to complete this topic Meningococcal Vaccine Aged Out No jaswant marissa eligible based on patient's age to complete this topic RSV Immunizations Under 20 Months Aged Out No longer eligible b ased on patient's age to complete this topic Procedures Procedure Name Priority Date/Time Associated Diagnosis Comments XR KNEE LT 3V STAT 11/30/2024 12:51 PM CDT MRI LUMB SPINE WO CON Routine 11/05/2024 1:50 PM CDT 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 No evidence of acute fracture or dislocation. 2. Small joint effusion 3. Mild soft tissue contusion lateral lower thigh and knee 4. Mild degenerative change due to mild medial femorotibial compartment narrowing. Referred By: Interpreted By: Millicent Zapata DO, 11/30/2024 1:01 PM Narrative 11/30/2024 1:05 PM CDT [address] [place] [address] CLINICAL INDICATION: 79-year-old male. Reason for examination: Fall 11/30/2024 12:52 PM, Leonardo Paredes S: FALL 2 WEEKS AGO ANTERIOR KNEE PAIN TECHNIQUE: 4 view survey of the left knee AP lateral oblique and sunrise view of the patella with the patient nonweightbearing COMPARISON: No previous imaging of the left knee FINDINGS: No evidence of acute fracture or dislocation. There is a small knee joint effusion. Mild narrowing of the medial femorotibial compartment. The medial and lateral patellar recess are normal with. Lateral femoral tibial compartment maintained. There is lateral lower thigh and knee soft tissue contusion. Procedure Note Millicent Zapata MD - 11/30/[address] [place] [address] CLINICAL INDICATION: 79-year-old male. Reason for examination: Fall 11/30/2024 12:52 PM, Leonardo Paredes S: FALL 2 WEEKS AGO ANTERIOR KNEEPAIN TECHNIQUE: 4 view survey of the left knee AP lateral oblique and sunrise view of thepatella with the patient nonweightbearing COMPARISON: No previous imaging of the left knee FINDINGS: No evidence of acute fracture or dislocation. There is a small knee jointeffusion. Mild narrowing of the medial femorotibial compartment. Themedial and lateral patellar recess are normal with. Lateral femoraltibial compartment maintained. There is lateral lower thigh and knee softtissue contusion. IMPRESSION: 1. No evidence of acute fracture or dislocation. 2. Small joint effusion 3. Mild soft tissue contusion lateral lower thigh and knee 4. Mild degenerative change due to mild medial femorotibial compartmentnarrowing. Referred By: Interpreted By: Mlilicent Zapata DO, 11/30/2024 1:01 PM us Derrek Crane MD GENERAL IMAGING Final Result * MRI LUMB SPINE WO CON (11/05/2024 1:50 PM CDT) Anatomical Region Laterality Modality Spine Magnetic Resonan ce 11/12/2024 8:36 AM CDT Impressions 11/12/2024 8:46 AM CDT IMPRESSION: 1. Multilevel degenerative changes in the lumbar spine. Large right paracentral/foraminal herniation at T12-L1 contributes to severe canal stenosis with effacement of the thecal sac and mass effect upon the cord/conus. Subtle signal abnormality within the subjacent cord/conus could be due to edema or myelomalacia. 2. Additional multilevel degenerative changes elsewhere as detailed. 3. Prominent likely reactive/degenerative edema along the T12-L1 endplates. Ordered By: ANASTACIO ALSTON Interpreted By: Silvano Veliz MD, 11/12/2024 8:36 AM Narrative 11/12/2024 8:46 AM CDT [facility] [address] [place] [address] DATE: 11/05/2024 12:56 PM INDICATION: Low back pain. Bilateral leg weakness. EXAMINATION: MRI lumbar spine without contrast. TECHNIQUE: Multiplanar and multisequence MRI images of the lumbar spine were obtained without contrast. COMPARISON: None FINDINGS: There are 5 lumbar type vertebral bodies designated as L1 through L5; using this numbering system, the conus medullaris terminates at L1 and appears unremarkable. Mid lumbar dextroscoliosis. Multilevel slight retrolistheses. Otherwise the lumbar vertebral alignment, vertebral body heights, and facet alignment are maintained. Multilevel degenerative changes are evident in the lower thoracic and lumbar spine with disc degeneration, endplate osteophytes, ligamentum flavum thickening, and facet hypertrophy noted. Multilevel disc desiccation and loss of intervertebral disc height. Likely reactive/degenerative edema along the T12-L1 endplates. Subtle signal abnormality suggested in the distal thoracic cord/conus at T12-L1, possibly edema or myelomalacia, and corresponding to the level of most severe spinal canal compromise. Imaged portions of the soft tissues reveal no definite acute findings. Left renal cysts. T11-T12: Mild disc bulge. Facet hypertrophy. Flattening of the ventral thecal sac. No significant canal or foraminal narrowing. T12-L1: Disc bulge. Large right paracentral/foraminal herniation. Ligamentous and facet hypertrophy. Severe canal stenosis with near complete effacement of the thecal sac and mass effect upon the distal cord/conus. Moderate right and mild left foraminal narrowing. L1-L2: Slight retrolisthesis. Disc bulge. Endplate osteophytes. Ligamentous and facet hypertrophy. No significant canal stenosis. No significant foraminal narrowing. L2-L3: Slight retrolisthesis. Disc and posterior/marginal endplate osteophyte complex. Ligamentous and facet hypertrophy. Mild canal stenosis. Mild to moderate foraminal narrowing. L3-L4: Slight retrolisthesis. Disc bulge. Posterior and marginal endplate osteophytes. Ligamentous and facet hypertrophy. Mild to moderate canal stenosis. Moderate bilateral foraminal narrowing. L4-L5: Disc and posterior/marginal endplate osteophyte complex. Ligamentum flavum thickening. Facet hypertrophy. Mild to moderate canal stenosis. Moderate to severe right and mild to moderate left foraminal narrowing. L5-S1: Disc bulge. Posterior and marginal endplate osteophytes. Facet protrusion. No significant canal stenosis. Mild to moderate right and mild left foraminal narrowing. Procedure Note Silvano Veliz MD - 11/12/2024 [facility] [address] [place] [address] DATE: 11/05/2024 12:56 PM INDICATION: Low back pain. Bilateral leg weakness. EXAMINATION: MRI lumbar spine without contrast. TECHNIQUE: Multiplanar and multisequence MRI images of the lumbar spine were obtainedwithout contrast. COMPARISON: None FINDINGS: There are 5 lumbar type vertebral bodies designated as L1 through L5;using this numbering system, the conus medullaris terminates at L1 andappears unremarkable. Mid lumbar dextroscoliosis. Multilevel slight retrolistheses. Otherwisethe lumbar vertebral alignment, vertebral body heights, and facetalignment are maintained. Multilevel degenerative changes are evident inthe lower thoracic and lumbar spine with disc degeneration, endplateosteophytes, ligamentum flavum thickening, and facet hypertrophy noted.Multilevel disc desiccation and loss of intervertebral disc height. Likelyreactive/degenerative edema along the T12-L1 endplates. Subtle signalabnormality suggested in the distal thoracic cord/conus at T12-L1,possibly edema or myelomalacia, and corresponding to the level of mostsevere spinal canal compromise. Imaged portions of the soft tissues reveal no definite acute findings.Left renal cysts. T11-T12: Mild disc bulge. Facet hypertrophy. Flattening of the ventralthecal sac. No significant canal or foraminal narrowing. T12-L1: Disc bulge. Large right paracentral/foraminal herniation.Ligamentous and facet hypertrophy. Severe canal stenosis with nearcomplete effacement of the thecal sac and mass effect upon the distalcord/conus. Moderate right and mild left foraminal narrowing. L1-L2: Slight retrolisthesis. Disc bulge. Endplate osteophytes.Ligamentous and facet hypertrophy. No significant canal stenosis. Nosignificant foraminal narrowing. L2-L3: Slight retrolisthesis. Disc and posterior/marginal endplateosteophyte complex. Ligamentous and facet hypertrophy. Mild canalstenosis. Mild to moderate foraminal narrowing. L3-L4: Slight retrolisthesis. Disc bulge. Posterior and marginal endplateosteophytes. Ligamentous and facet hypertrophy. Mild to moderate canalstenosis. Moderate bilateral foraminal narrowing. L4-L5: Disc and posterior/marginal endplate osteophyte complex. Ligamentumflavum thickening. Facet hypertrophy. Mild to moderate canal stenosis.Moderate to severe right and mild to moderate left foraminal narrowing. L5-S1: Disc bulge. Posterior and marginal endplate osteophytes. Facetprotrusion. No significant canal stenosis. Mild to moderate right and mildleft foraminal narrowing. IMPRESSION: 1. Multilevel degenerative changes in the lumbar spine. Large rightparacentral/foraminal herniation at T12-L1 contributes to severe canalstenosis with effacement of the thecal sac and mass effect upon thecord/conus. Subtle signal abnormality within the subjacent cord/conuscould be due to edema or myelomalacia. 2. Additional multilevel degenerative changes elsewhere as detailed. 3. Prominent likely reactive/degenerative edema along the [id number]. Ordered By: ANASTACIO ALSTON Interpreted By: Silvano Veliz MD, 11/12/2024 8:36 AM Anastacio TOBAR MRI Final Resu lt from Last 3 Months Insurance [employer] Care Teams Fruit Canner Relationship Specialty Start Date End Date Clarence Zamora Jr., MD [address] [place] [id number] PCP - General HOSPITALIST 01/20/23 Vidal Pike DO [address] [phone] NEUROLOGICAL SURGERY 12/28/24
== END 2025-01-24 14:27 | disposition home or self-care (01) ==
PROVIDERS: PCP Hospitalist; Visit Provider Nurse Practitioner Family
DX: N20.0 Calculus of kidney (principal)
CPT/HCPCS: 74176